=== PATIENT | male | born 1975 | race Hispanic/Latino ===

== ENCOUNTER 2019-09-17 15:40 | Emergency (ER) | payer SELFPAY ==
[2019-09-17 15:45] VITALS: BP 138/87
--- NOTE | 2019-09-17 17:21 | Emergency Department Report ---
Abscess Boil HPI - HPI Chief Complaint: Skin/Abscess/Foreign Body Stated Complaint: (L) ARM /SPIDER BITE Time Seen by Provider: 09/17/19 17:19 Duration: 3 Days Location: Upper Extremity Severity: Moderate History: Yes Pain, Yes Previous History, No Fever, No Purulent Drainage, No Numbness, No Foreign Body HPI: abscess L forearm x 3 days. states it started as ingrown hair Home Medications: Previous Rx's Medication Instructions Recorded Last Taken Type Ketorolac [Toradol] 10 mg PO Q6H PRN #12 tablet 09/17/19 Unknown Rx Sulfamethoxazole/Trimethoprim 1 each PO BID #20 tablet 09/17/19 Unknown Rx [Bactrim DS TAB] cephALEXin [Keflex] 500 mg PO Q6HR #40 capsule 09/17/19 Unknown Rx Allergies/Adverse Reactions: Allergies Allergy/AdvReac Type Severity Reaction Status Date / Time No Known Allergies Allergy Unverified 09/17/19 15:43 ED Review of Systems ROS: Stated complaint: (L) ARM /SPIDER BITE Other details as noted in HPI Comment: All other systems reviewed and negative Skin: as per HPI ED Past Medical Hx - Past Medical History Previous Medical History?: No - Surgical History Hx Appendectomy: Yes - Medications Home Medications: Home Medications Medication Instructions Recorded Confirmed Last Taken Type Ketorolac [Toradol] 10 mg PO Q6H PRN #12 tablet 09/17/19 Unknown Rx Sulfamethoxazole/Trimethoprim 1 each PO BID #20 tablet 09/17/19 Unknown Rx [Bactrim DS TAB] cephALEXin [Keflex] 500 mg PO Q6HR #40 capsule 09/17/19 Unknown Rx ED Abscess Boil Physical Exam - Exam General: Vital signs noted. No distress. Alert and acting appropriately. Size: 4 cm Exam: Yes Tenderness, Yes Fluctuance, Yes Surrounding Cellulites/Erythema, Yes Normal Neurologic Exam, Yes Normal Circulation, No Lymphangitis, No Heart Murmur I & D Note - I & D Note I & D Note: Area was prepped and draped in usual sterile fashion. 3 cc of 1% lidocaine was used to anesthetize area. A single stab incision was made at area of maximum fluctuance with an 11 blade scalpel. Wound was probed and loculations broken up. Moderate purulent drainage was expressed. The patient tolerated procedure well. ED Course Vital Signs 09/17/19 15:43 Temperature 98.7 F Pulse Rate 107 H Respiratory 16 Rate Blood Pressure 138/87 [Right] O2 Sat by Pulse 97 Oximetry Critical care attestation.: If time is entered above; I have spent that time in minutes in the direct care of this critically ill patient, excluding procedure time. ED Medical Decision Making - Medical Decision Making Pt with abscess/cellulitic change surrounding. I&D performed, will place on Bactrim/Keflex Recommend PCP f/u, RTER if worse as discussed. - Differential Diagnosis abscess, cellulitis ED Disposition Clinical Impression: Cellulitis and abscess of upper arm and forearm Disposition: DC-01 TO HOME OR SELFCARE Is pt being admited?: No Condition: Good Instructions: Abscess Incision and Drainage (ED), Abscess (ED) Prescriptions: Sulfamethoxazole/Trimethoprim [Bactrim DS TAB] 1 each PO BID #20 tablet cephALEXin [Keflex] 500 mg PO Q6HR #40 capsule Ketorolac [Toradol] 10 mg PO Q6H PRN #12 tablet PRN Reason: Pain Referrals: APPLE BANDA MD [Staff Physician] - 3-5 Days Time of Disposition: 17:59
== END 2019-09-17 18:14 | disposition home or self-care (01) ==
LOC: ED 15:40
DX: L03.114 Cellulitis of left upper limb (principal); L02.414 Cutaneous abscess of left upper limb; Z90.89 Acquired absence of other organs